=== PATIENT | female | born 1990 | race African-American/Black ===

== ENCOUNTER 2020-01-31 23:18 | Emergency (ER) | payer MEDICAID ==
[~2020-01-31] VITALS: Ht 165.1 cm; Wt 70.0 kg
[2020-01-31 23:29] VITALS: BP 145/67
[2020-02-01] MEDS ORDERED: DIPHENHYDRAMINE 25MG CAPSULE PO ONE (00:45)
[2020-02-01] MEDS ORDERED: ACETAMINOPHEN 500MG TABLET PO ONE (00:45)
== END 2020-02-01 01:57 | disposition home or self-care (01) ==
LOC: ER 23:18
DX: L30.9 Dermatitis, unspecified (principal); L30.1 Dyshidrosis [pompholyx]; N93.9 Abnormal uterine and vaginal bleeding, unspecified
CPT/HCPCS: 81025; 99282